=== PATIENT | female | born 1985 | race Asian ===

== ENCOUNTER 2019-03-24 18:46 | Emergency (ER) | payer OTHER ==
[~2019-03-24] VITALS: Ht 165.1 cm; Wt 75.0 kg
--- NOTE | 2019-03-24 18:58 | NUR ---
EKG 1854
[2019-03-24 19:03] VITALS: BP 126/74
[2019-03-24 19:53] LABS: BASOPHILS # (AUTO) 0.1 X10'3 (0-0.2); EOSINOPHILS % (AUTO) 0.5 % (0-6); HEMATOCRIT 39.3 % (35.0-45.0); HEMOGLOBIN 13.1 g/dl (12.0-16.0); LYMPHOCYTES # (AUTO) 2.2 X10'3 (1.1-4.8); LYMPHOCYTES % (AUTO) 27.4 % (21-51); MEAN CORPUSCULAR HEMOGLOBIN 29.6 PG (27.0-31.0); MEAN CORPUSCULAR HGB CONC 33.3 g/dL (33.0-36.5); MEAN CORPUSCULAR VOLUME 88.9 FL (78-98); MONOCYTES # (AUTO) 0.8 X10'3 (0-0.9); MONOCYTES % (AUTO) 9.6 % (2-12); NEUTROPHILS % (AUTO) 61.5 % (42-75); PLATELET COUNT 322 X10'3 (140-440); RED BLOOD COUNT 4.42 X10'6 (4.20-5.60); RED CELL DISTRIBUTION WIDTH 13.2 % (11.5-14.5); WHITE BLOOD COUNT 8.1 X10'3 (4.5-11.0)
[2019-03-24 20:10] LABS: PARTIAL THROMBOPLASTIN TIME 29 SECONDS (22-32)
[2019-03-24 20:14] LABS: ALANINE AMINOTRANSFERASE 16 U/L (12-78); ALBUMIN 3.8 G/DL (3.4-5.0); ALBUMIN/GLOBULIN RATIO 0.8 (1.1-1.5); ALKALINE PHOSPHATASE 62 IU/L (46-116); ANION GAP 4 (8-16); ASPARTATE AMINO TRANSFERASE 12 U/L (10-37); BILIRUBIN,TOTAL 0.4 MG/DL (0.1-1.0); BLOOD UREA NITROGEN 9 MG/DL (7-18); CALCIUM 8.8 MG/DL (8.5-10.1); CHLORIDE 105 MMOL/L (99-107); CREATININE 0.69 MG/DL (0.40-0.90); GLUCOSE 75 MG/DL (70-104); POTASSIUM 3.6 MMOL/L (3.5-5.1); SODIUM 140 MMOL/L (135-145); TOTAL CARBON DIOXIDE 30.8 MMOL/L (24-32); TOTAL PROTEIN 8.4 G/DL (6.4-8.2); eGFR > 90 ML/MIN
== END 2019-03-24 21:16 | disposition home or self-care (01) ==
LOC: ER 18:48
DX: R42 Dizziness and giddiness (principal)
CPT/HCPCS: 36415; 71045; 80053; 84484; 85025; 85610; 85730; 93005; 99284

== ENCOUNTER 2019-04-15 00:22 | Emergency (ER) | payer OTHER ==
[~2019-04-15] VITALS: Ht 165.1 cm; Wt 68.4 kg
[2019-04-15 03:32] VITALS: BP 120/83
[2019-04-15] MEDS ORDERED: SULF1TAB49 PO (05:22)
== END 2019-04-15 05:35 | disposition home or self-care (01) ==
LOC: ER 00:23
DX: T63.391A Toxic effect of venom of other spider, accidental (unintentional), initial encounter (principal); Y92.89 Other specified places as the place of occurrence of the external cause
CPT/HCPCS: 99283

== ENCOUNTER 2019-04-16 18:05 | Emergency (ER) | payer OTHER ==
[~2019-04-16] VITALS: Ht 165.1 cm; Wt 71.0 kg
[~2019-04-16 18:05] MED LIST: SULF1TAB49 PO
[2019-04-16 18:37] VITALS: BP 115/82
== END 2019-04-16 18:41 | disposition home or self-care (01) ==
LOC: ER 18:05
DX: R20.2 Paresthesia of skin (principal); R42 Dizziness and giddiness; T36.8X5A Adverse effect of other systemic antibiotics, initial encounter; L53.8 Other specified erythematous conditions; R06.02 Shortness of breath; Z79.899 Other long term (current) drug therapy; Y92.89 Other specified places as the place of occurrence of the external cause
CPT/HCPCS: 99281

== ENCOUNTER 2024-08-05 17:19 | Emergency (ER) | payer OTHER ==
[~2024-08-05] VITALS: Ht 165.1 cm; Wt 77.2 kg
[2024-08-05 18:04] LABS: BASOPHILS % (AUTO) 0.5 % (0-1); EOSINOPHILS # (AUTO) 0.1 X10'3 (0-0.9); EOSINOPHILS % (AUTO) 0.9 % (0-6); LYMPHOCYTES # (AUTO) 1.8 X10'3 (1.1-4.8); LYMPHOCYTES % (AUTO) 28.8 % (21-51); MEAN CORPUSCULAR HEMOGLOBIN 29.7 PG (27.0-31.0); MEAN CORPUSCULAR HGB CONC 34.1 g/dL (33.0-36.5); MEAN CORPUSCULAR VOLUME 86.9 FL (78-98); MEAN PLATELET VOLUME 7.1 FL (7.4-10.4); MONOCYTES # (AUTO) 0.5 X10'3 (0-0.9); MONOCYTES % (AUTO) 7.7 % (2-12); NEUTROPHILS # (AUTO) 3.9 X10'3 (1.8-7.7); NEUTROPHILS % (AUTO) 62.1 % (42-75); PLATELET COUNT 351 X10'3 (140-440); RED BLOOD COUNT 4.38 X10'6 (4.20-5.60); RED CELL DISTRIBUTION WIDTH 14.2 % (11.5-14.5); WHITE BLOOD COUNT 6.2 X10'3 (4.5-11.0)
[2024-08-05 18:23] LABS: ALBUMIN 3.6 G/DL (3.4-5.0); ANION GAP 5 (8-16); BLOOD UREA NITROGEN 11 MG/DL (7-18); BUN/CREATININE RATIO 16.2 (10.0-20.0); CALCIUM 8.3 MG/DL (8.5-10.1); CHLORIDE 107 MMOL/L (99-107); CREATININE 0.68 MG/DL (0.40-0.90); GLUCOSE 124 MG/DL (70-104); MAGNESIUM 2.1 MG/DL (1.5-2.4); POTASSIUM 3.6 MMOL/L (3.5-5.1); PRO BRAIN NATRIURETIC PEPTIDE 40 PG/ML (0-125); SODIUM 139 MMOL/L (135-145); TOTAL CARBON DIOXIDE 26.6 MMOL/L (24-32); eCRCL 102 ML/MIN; eGFR > 90 ML/MIN
[2024-08-05 19:42] VITALS: TEMP 97.9
[2024-08-05 21:39] VITALS: BP 121/87; PULSE 76; RESP 16; O2SAT 97
== END 2024-08-05 21:43 | disposition home or self-care (01) ==
LOC: ER 17:20
DX: R00.0 Tachycardia, unspecified (principal); I25.10 Atherosclerotic heart disease of native coronary artery without angina pectoris
CPT/HCPCS: 36415; 71045; 80048; 83735; 83880; 84484; 85025; 93005; 99285

== ENCOUNTER 2024-09-19 14:45 | Emergency (ER) | payer OTHER ==
[~2024-09-19] VITALS: Ht 165.1 cm; Wt 177.5 kg
[2024-09-19 14:55] VITALS: BP 113/84; PULSE 80; RESP 18; TEMP 97.2; O2SAT 99
[2024-09-19 16:05] LABS: BASOPHILS % (AUTO) 0.7 % (0-1); EOSINOPHILS % (AUTO) 0.4 % (0-6); HEMATOCRIT 39.9 % (35.0-45.0); HEMOGLOBIN 13.6 g/dl (12.0-16.0); LYMPHOCYTES # (AUTO) 1.7 X10'3 (1.1-4.8); LYMPHOCYTES % (AUTO) 25.2 % (21-51); MEAN CORPUSCULAR HEMOGLOBIN 30.4 PG (27.0-31.0); MEAN CORPUSCULAR VOLUME 89.5 FL (78-98); MEAN PLATELET VOLUME 6.9 FL (7.4-10.4); MONOCYTES # (AUTO) 0.5 X10'3 (0-0.9); MONOCYTES % (AUTO) 7.1 % (2-12); NEUTROPHILS # (AUTO) 4.4 X10'3 (1.8-7.7); NEUTROPHILS % (AUTO) 66.6 % (42-75); PLATELET COUNT 354 X10'3 (140-440); RED BLOOD COUNT 4.46 X10'6 (4.20-5.60); RED CELL DISTRIBUTION WIDTH 13.7 % (11.5-14.5); WHITE BLOOD COUNT 6.7 X10'3 (4.5-11.0)
[2024-09-19 16:06] LABS: BILIRUBIN,URINE NEGATIVE (Neg); CLARITY,URINE CLEAR (Clear); COLOR,URINE YELLOW (Yellow); GLUCOSE, URINE NEGATIVE (Neg); KETONES,URINE NEGATIVE (Neg); LEUKOCYTE ESTERASE ,URINE SMALL (Neg); NITRITES, URINE NEGATIVE (Neg); OCCULT BLOOD,URINE TRACE-INTACT (Neg); PROTEIN,URINE NEGATIVE (Neg); URINE HCG NEGATIVE (NEG); UROBILINOGEN,URINE 0.2 E.U/dL (0.2-1.0)
[2024-09-19 16:07] LABS: UA COLLECTION TYPE CLN CATCH MIDSTREAM
[2024-09-19 16:19] LABS: BACTERIA,URINE 2+ /HPF (Neg); RBC,URINE 0-2 /HPF (0-2); SQUAMOUS EPITHELIAL CELL,UR FEW /LPF (FEW); WBC,URINE 0-4 /HPF (0-4)
[2024-09-19 16:31] LABS: ALANINE AMINOTRANSFERASE 13 U/L (12-78); ALBUMIN 3.8 G/DL (3.4-5.0); ALBUMIN/GLOBULIN RATIO 0.8 (1.1-1.5); ALKALINE PHOSPHATASE 64 IU/L (46-116); ANION GAP 10 (8-16); ASPARTATE AMINO TRANSFERASE 15 U/L (10-37); BILIRUBIN,TOTAL 0.3 MG/DL (0.1-1.0); BLOOD UREA NITROGEN 7 MG/DL (7-18); BUN/CREATININE RATIO 9.5 (10.0-20.0); CALCIUM 9.1 MG/DL (8.5-10.1); CHLORIDE 105 MMOL/L (99-107); CREATININE 0.74 MG/DL (0.40-0.90); GLUCOSE 105 MG/DL (70-104); POTASSIUM 3.8 MMOL/L (3.5-5.1); SODIUM 138 MMOL/L (135-145); TOTAL CARBON DIOXIDE 22.9 MMOL/L (24-32); TOTAL PROTEIN 8.7 G/DL (6.4-8.2); eCRCL 94 ML/MIN; eGFR 88 ML/MIN
[2024-09-19 16:34] LABS: THYROID STIMULATING HORMONE 1.46 ulU/ml (0.34-4.50)
[2024-09-19] MEDS ORDERED: HYDR-3686 PO (16:48)
== END 2024-09-19 17:01 | disposition home or self-care (01) ==
LOC: ER 14:46
DX: F41.9 Anxiety disorder, unspecified (principal)
CPT/HCPCS: 36415; 80053; 81001; 81025; 84443; 85025; 87088; 99283

== ENCOUNTER 2024-11-19 10:47 | Emergency (ER) | payer OTHER ==
[~2024-11-19] VITALS: Ht 165.1 cm; Wt 79.5 kg
[2024-11-19] MEDS ORDERED: LORA-269 PO (13:00)
[2024-11-19 13:43] VITALS: BP 112/64; PULSE 68; RESP 15; TEMP 97.8; O2SAT 99
== END 2024-11-19 13:26 | disposition home or self-care (01) ==
LOC: ER 10:48
DX: R13.10 Dysphagia, unspecified (principal)
CPT/HCPCS: 71046; 99283

== ENCOUNTER 2024-12-16 23:06 | Emergency (ER) | payer OTHER ==
[~2024-12-16] VITALS: Ht 162.6 cm; Wt 78.2 kg
[~2024-12-16 23:06] MED LIST changes: +LORA-269 PO; -SULF1TAB49 PO
[2024-12-16 23:14] VITALS: BP 127/88; PULSE 81; RESP 10; O2SAT 97
[2024-12-17 02:21] VITALS: TEMP 98.3
--- NOTE | 2024-12-17 02:25 | Physician Documentation ---
History of Present Illness ~ General Chief Complaint: See Chief Complaint Stated Complaint: INSOMNIA FOR 48 HOURS Time Seen by MD: 01:45 Primary Medical Doctor: JABARI DAVIDSON History of Present Illness Initial Comments No history obtained as this patient left before being seen Medication Reconciliation Allergies: Coded Allergies: omeprazole (Verified Adverse Reaction, Mild, stomach ache, 12/16/24) Uncoded Allergies: SHELLFISH (Adverse Reaction, Severe, stomach ache, 12/16/24) Scheduled Lorazepam (Ativan), 1 TAB PO Q8H Past Medical History Past Medical History: *GI/HEPATOBILIARY* Past Surgical History: no surgical history Alcohol Use: None Drug Use: none Lives In: Home Physical Exam Physical Exam Vital Signs: Temperature: 98.3, Source: Oral, Heart Rate: 81, Respiratory Rate: 10, BP: 127/88, Pulse Oximetry: 97, Weight: 78.200 Progress Results/Orders Results/Orders Vital Signs 12/16/24 12/17/24 23:14 02:21 Temp 98.3 98.3 Pulse 81 Resp 10 B/P (MAP) 127/88 Pulse Ox 97 Departure Disposition: 07 LEFT WITHOUT BEING SEEN Impression: Primary Impression: Insomnia Qualified Codes: G47.00 - Insomnia, unspecified Additional Impression Text Patient unfortunately left without being seen. Referrals: NO PRIMARY CARE PROVIDER (PCP) Signature Scribe Signature: na Attestation: GISSELLE Simpson MD December 17, 2024 02:25
== END 2024-12-17 02:23 | disposition left against medical advice (07) ==
LOC: ER 23:07
DX: G47.00 Insomnia, unspecified (principal); Z88.8 Allergy status to other drugs, medicaments and biological substances; Z79.899 Other long term (current) drug therapy; Z53.21 Procedure and treatment not carried out due to patient leaving prior to being seen by health care provider

== ENCOUNTER 2025-01-25 10:57 | Outpatient (CLI) | payer OTHER ==
[~2025-01-25 10:57] MED LIST changes: +barium sulfate 340gm for oral suspension 1 BOTTLE SUSP.RECON PO ONE
--- NOTE | 2025-01-25 17:53 | RADIOLOGY REPORT ---
Esophagram study HISTORY: Dysphasia With the patient in both prone and upright positions both thin and thick liquid barium meals were administered under fluoroscopic evaluation. Fluoroscopy time was 1.1 minutes with dose of 28.8 mGy. There is normal esophageal motility and distensibility without evidence of stricture or mucosal defect. There is a small reducible axial hiatal hernia. There is no significant gastroesophageal reflux. The gastric and duodenal mucosal pattern appears unremarkable. IMPRESSION: Small reducible axial hiatal hernia. Otherwise unremarkable examination.
== END 2025-01-25 23:59 | disposition home or self-care (01) ==
LOC: RAD 10:57
PROVIDERS: ATTEND Internal Medicine Gastroenterology
DX: K44.9 Diaphragmatic hernia without obstruction or gangrene (principal); R13.10 Dysphagia, unspecified
CPT/HCPCS: 74220